=== PATIENT | male | born 1995 | race Hispanic/Latino ===

== ENCOUNTER 2019-04-21 21:17 | Emergency (ER) | payer OTHER, SELFPAY ==
[2019-04-21 21:48] LABS: Bacteria/HPF None Seen HPF (None Seen); Bilirubin Negative (Negative); Blood, Urine 2+ (Negative); Clarity Clear (Clear); Glucose, Urine (Dipstick) Normal (Negative); Leukocyte Negative Leu/uL (Negative); Nitrite Negative (Negative); Protein, Urine (Dipstick) Negative (Neg-Trace); RBC/HPF Greater than 50 HPF (0-3); Squamous Epithelial 0-3 HPF (0-3); Urobilinogen Normal mg/dL (Less than 2); WBC/HPF 0-3 HPF (0-3)
[2019-04-21 22:33] LABS: #Basophils 0.1 thou/uL (0.0-0.2); #Eosinphils 0.1 thou/uL (0.0-0.7); #Monocytes 0.5 thou/uL (0.11-0.59); #Neutrophils 5.5 thou/uL (1.40-6.50); %Basophils 1.1 % (0.0-1.0); %Eosinophils 1.3 % (0.0-10.0); %Lymphocytes 32.7 % (21.0-51.0); %Monocytes 5.2 % (0.0-10.0); %Neutrophils 59.7 % (42.0-75.0); Hemoglobin 15.5 g/dL (14.0-18.0); Mean Corpuscular HGB CONC 33.8 g/dL (32.0-36.0); Mean Corpuscular Hemoglobin 30.4 pg (27.0-31.0); Mean Platelet Volume 7.5 fL (7.4-10.4); Platelet Count 310 thou/uL (130-400); RBC Distribution Width 11.9 % (11.5-14.5); Red Blood Cell (RBC) Count 5.08 mill/uL (4.70-6.10); White Blood Cell (WBC) Count 9.3 thou/uL (4.8-10.8)
[2019-04-21 22:56] LABS: ALT (SGPT) 156 U/L (8-55); AST (SGOT) 78 U/L (5-34); Albumin 4.9 g/dL (3.5-5.0); Alkaline Phosphatase 102 U/L (40-110); Anion Gap 14 mmol/L (10-20); BUN (Urea Nitrogen) 11 mg/dL (8.9-20.6); Bilirubin, Total 0.5 mg/dL (0.2-1.2); Calc. Creatinine Clearance 0 mL/min (70-130); Calcium 9.4 mg/dL (7.8-10.44); Carbon Dioxide 25 mmol/L (22-29); Chloride 105 mmol/L (98-107); Estimated GFR-MDRD Greater than 90; Globulin 3.7 g/dL (2.4-3.5); Glucose 138 mg/dL (70-105); Potassium 3.9 mmol/L (3.5-5.1); Protein, Total 8.6 g/dL (6.0-8.3); Sodium 140 mmol/L (136-145)
--- NOTE | 2019-04-21 23:18 | ULT ---
SCROTAL ULTRASOUND INDICATION: Testicular pain with right testicular pain and swelling and hematuria TECHNIQUE: Grayscale, color Doppler spectral Doppler images were obtained of the scrotum. COMPARISON: None. FINDINGS: Right Testicle: Size: 3.0 x 4.0 x 2.2 cm. Flow: There is normal vascular flow to the right testicle Hydrocele: No right-sided hydrocele is evident Epididymis: Right epididymis is not visualized. Left Testicle: Size: 2.8 x 4.0 x 2.0 cm. Flow: There is normal vascular flow to left testicle. Hydrocele: There is a small left hydrocele Epididymis: The left epididymis appears within normal limits. Additional findings: There is prominent scrotal thickening, particularly surrounding the right testic le. Impression: 1. Prominent scrotal thickening, particularly surrounding the right testicle, is most suspicious for scrotal cellulitis. 2. No intratesticular mass or torsion demonstrated. 3. Small left hydrocele
--- NOTE | 2019-04-22 07:35 | CT ---
PRELIMINARY REPORT/[facility]/EMERGENCY AFTER HOURS PROCEDURE PROCEDURE INFORMATION: Exam: CT Abdomen And Pelvis With Contrast Exam date and time: 04/22/2019 12:10 AM Clinical history: 23 years old, male; Patient HX: 24 yo m here for blood in urine starting today, associated dysuria. No penile discharge, endorses right testicular pain. Two episodes, no clots passed, no abd/pack pain, no n/v/f/c. No HX of utis. ; Additional info: Mass seen on ultrasound, extended down through testicles TECHNIQUE: Imaging protocol: Computed tomography of the abdomen and pelvis with intravenous contrast. COMPARISON: No relevant prior studies available. FINDINGS: Limitations: Limited study due to motion and streak artifacts. Liver: No acute findings. No mass. Gallbladder and bile ducts: No calcified stones. No ductal dilation. Pancreas: No acute findings. No mass. No ductal dilation. Spleen: No acute findings. No mass. Adrenals: No acute findings. No mass. Kidneys and ureters: No acute findings. No mass. No hydronephrosis. Stomach and bowel: No evidence of bowel obstruction. Diverticulosis. Small hiatal hernia. Appendix: Appendix could be somewhat prominent, although not very discretely visualized from the adjacent small bowel loops; motion artifact also limits evaluation. No significant periappendiceal inflammation or fluid. Intraperitoneal space: No free air. No significant fluid collection. Vasculature: No acute findings. No abdominal aortic aneurysm. Lymph nodes: No significant lymphadenopathy. Bladder: No acute findings. Reproductive: Large fat-containing right inguinal hernia extending to the scrotum adjacent to the right testicle. Bones/joints: No acute fracture. Soft tissues: See above. IMPRESSION: Large fat-containing right inguinoscrotal hernia. Findings described above. Thank you for allowing us to participate in the care of your patient. Dictated and Authenticated by: Marito Fuentes MD 04/22/2019 12:48 AM Central Time ([place] & [place]) FINAL REPORT Emergent after hours CT abdomen and pelvis with IV contrast HISTORY: Testicular mass. Blood in urine. Dysuria. IMPRESSION: 1. Prominent motion artifact which does limit evaluation. 2. Large fat-containing right inguinal hernia with extension of fat into the right scrotum. 3. Allowing for motion artifact, the kidneys demonstrate a normal CT appearance bilaterally without h ydronephrosis, and no definite renal mass is seen. 4. Small hiatal hernia. 5. The appendix is prominent size, but there is no periappendiceal inflammatory changes or cecal apic al thickening. Findings are agreement with the preliminary report by [facility]. Code QA Transcribed Date/Time: 04/22/2019 7:53 AM
== END 2019-04-22 01:00 | disposition home or self-care (01) ==
LOC: ERS 21:17
DX: K40.90 Unilateral inguinal hernia, without obstruction or gangrene, not specified as recurrent (principal); R31.9 Hematuria, unspecified; F90.9 Attention-deficit hyperactivity disorder, unspecified type
CPT/HCPCS: 36415; 74177; 76870; 80053; 81003; 81015; 85025; 93976